=== PATIENT | male | born 1995 | race Two or more races ===

== ENCOUNTER 2025-08-14 13:42 | Outpatient (RCR) | payer MEDICAID, SELFPAY ==
--- NOTE | 2025-08-14 14:01 | PTNOTE_ITS ---
PT OP Initial Eval Patient Information Outpatient Physical Therapy Treatment Date: 08/14/25 Visit Reasons: WEAKNESS OF RT LOWER EXTREMITES Medical Diagnosis: R29.898 Treatment Dx #1: R ankle pain Start of Care: 08/14/25 Date of Onset: 04/03/25 DOS Smoking Status Smoking Status: Never smoker Initial Assessment Subjective: Pt is 30 yr old romansh speaking male who injured the R ankle and then had surgery x3 in March the last one 04/03. He has been receiving treatment for the wound and now reports difficulty ambulating and bending the ankle back which limits ambulatory distance. PMH: none reports Pt goal: to walk better Objective: R ankle AROM: DF: neutral Plantarflexion: to 30 deg, mostly forefoot flexion Inv/Eversion 15 deg Strength: Ankle DF 3-/5, PF: 4-/5 Heel raise B slowly x3 with pain TTP: moderate of wounds Sensation: intact to light touch of R foot Assessment: Pt presentation consistent with referring Dx. Pt has limited ankle DF ROM ? and gastroc tightness with decreased ankle PF strength with heel raises. ? Pt has stiff hindfoot PROM. Pt requires skilled therapy and has fair rehab potential. Eval followed by HEP printout. Short Term and Correction Goals 1. Independent with HEP ? 2. Improved DF ROM to 10 deg and PF to 50 deg ? 3. Decreased TTP from mod to min of incision scars ? 4. Improved ambulatory distance to community distances with symmetrical gait pattern Treatment Plan 1. Manual therapy ? 2. Therex ? 3. Modalities as indicated, moist heat, ice, TENS Frequency and Duration: 2x a week for 12 visits plus the evaluation. Will need more auth after 12. Certification Dates: 08/14/25 to 11/12/24 Procedure Charges OP PT Eval Mod Complex 30 minutes: Yes
== END 2025-08-19 23:59 | disposition home or self-care (01) ==
LOC: CPTX 13:42
PROVIDERS: PCP Physician Assistant; Referring Provider Physician Assistant; Visit Provider Physician Assistant
DX: M25.571 Pain in right ankle and joints of right foot (principal); R26.2 Difficulty in walking, not elsewhere classified; R29.898 Other symptoms and signs involving the musculoskeletal system; S99.911D Unspecified injury of right ankle, subsequent encounter; X58.XXXD Exposure to other specified factors, subsequent encounter
CPT/HCPCS: 97162

== ENCOUNTER 2025-09-18 14:00 | Outpatient (RCR) | payer MEDICAID, SELFPAY ==
--- NOTE | 2025-08-20 14:56 | PT.ODAYNRPT ---
PT Outpatient Daily Note OP Daily Note Outpatient Physical Therapy Treatment Date: 08/20/25 Visit Reasons: WEAKNESS OF LOWER EXTREMITES Subjective: Doing HEP with better ROM of ankle Objective: See F/S for therex Assessment: Decreased ankle DF ROM but pt able to heel raise Plan: Continue per POC Length of Time (minutes) of Treatment: 30 Minutes Procedure Charges Therapeutic Exercise 30 minutes: Yes
--- NOTE | 2025-08-23 15:12 | PT.ODAYNRPT ---
PT Outpatient Daily Note OP Daily Note Outpatient Physical Therapy Treatment Date: 08/23/25 Visit Reasons: WEAKNESS OF LOWER EXTREMITES Subjective: Pt reports his ankle is doing better. Objective: Please see flow sheet for ther ex list. Assessment: Pt tolerated intervention with minimal pain. Plan: Continue with pOC. Length of Time (minutes) of Treatment: 30 Minutes Procedure Charges Therapeutic Exercise 30 minutes: Yes
--- NOTE | 2025-08-29 16:09 | PT.ODAYNRPT ---
PT Outpatient Daily Note OP Daily Note Outpatient Physical Therapy Treatment Date: 08/29/25 Visit Reasons: WEAKNESS OF LOWER EXTREMITES Subjective: A little better movement of the ankle with pain Objective: See F/S for therex Assessment: Pain limits DF and PF ROM of R ankle. Good demo of gastroc stretch and deep squat to improve DF ROM Plan: Continue per POC Length of Time (minutes) of Treatment: 30 Minutes Procedure Charges Therapeutic Exercise 30 minutes: Yes
--- NOTE | 2025-08-31 15:21 | PT.ODAYNRPT ---
PT Outpatient Daily Note OP Daily Note Outpatient Physical Therapy Treatment Date: 08/31/25 Visit Reasons: WEAKNESS OF LOWER EXTREMITES Subjective: Pt reports ankle is feeling better since he received his injection. Objective: Please see flow sheet for ther ex list. Assessment: Interventions completed with decrease c/o pain indicating progress. Plan: Continue with POC. Length of Time (minutes) of Treatment: 30 Minutes Procedure Charges Therapeutic Exercise 30 minutes: Yes
--- NOTE | 2025-09-05 16:28 | PT.ODAYNRPT ---
PT Outpatient Daily Note OP Daily Note Outpatient Physical Therapy Treatment Date: 09/05/25 Visit Reasons: WEAKNESS OF LOWER EXTREMITES Subjective: A little better movement of the ankle with less pain Objective: See F/S for therex Assessment: Good demo of gastroc stretch and deep squat to improve DF ROM Plan: Continue per POC Length of Time (minutes) of Treatment: 30 Minutes Procedure Charges Therapeutic Exercise 30 minutes: Yes
--- NOTE | 2025-09-11 18:10 | PT.ODAYNRPT ---
PT Outpatient Daily Note OP Daily Note Outpatient Physical Therapy Treatment Date: 09/11/25 Visit Reasons: WEAKNESS OF LOWER EXTREMITES Subjective: Pt reports better movement of the ankle with less pain except coming down stairs. Objective: See F/S for therex Assessment: Good demo of gastroc stretch and deep squat to improve DF ROM. Pt has pain at end-range DF in ATJ. Plan: Continue per POC Length of Time (minutes) of Treatment: 30 Minutes Procedure Charges Therapeutic Exercise 30 minutes: Yes
--- NOTE | 2025-09-18 14:38 | PT.ODAYNRPT ---
PT Outpatient Daily Note OP Daily Note Outpatient Physical Therapy Treatment Date: 09/18/25 Visit Reasons: WEAKNESS OF LOWER EXTREMITES Subjective: Pt reports ankle is feeling better but notices if he walks on uneven surface ankle and foot hurt more. Objective: Please see flow sheet for ther ex lsit. Assessment: Added step up and standing on airex pad to simulate waling on non compliant surface minimal pain with interventions. Plan: Continue with poC. Length of Time (minutes) of Treatment: 30 Minutes Procedure Charges Therapeutic Exercise 30 minutes: Yes
== END 2025-09-19 23:59 | disposition home or self-care (01) ==
LOC: CPTX 14:00
PROVIDERS: PCP Physician Assistant; Referring Provider Physician Assistant; Visit Provider Physician Assistant
DX: M25.571 Pain in right ankle and joints of right foot (principal); R29.898 Other symptoms and signs involving the musculoskeletal system
CPT/HCPCS: 97110